=== PATIENT | female | born 1990 | race African-American/Black ===

== ENCOUNTER 2020-11-27 16:39 | Emergency (ER) | payer MEDICAID ==
[~2020-11-27] VITALS: Ht 167.6 cm; Wt 102.3 kg
[2020-11-27 17:05] VITALS: BP 103/67
--- NOTE | 2020-11-27 18:15 | NUR ---
Ran Urine hcg preg at 1755, came back negitive, notified RN and Provider
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
[2020-11-27] MEDS ORDERED: ACETAMINOPHEN 500 MG TABLET PO ONE (19:00)
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
== END 2020-11-27 19:06 | disposition home or self-care (01) ==
LOC: ER 16:39
DX: Z04.1 Encounter for examination and observation following transport accident (principal); F15.10 Other stimulant abuse, uncomplicated; R51.9 Headache, unspecified; R42 Dizziness and giddiness; R53.83 Other fatigue; F20.9 Schizophrenia, unspecified; Z87.820 Personal history of traumatic brain injury; F17.200 Nicotine dependence, unspecified, uncomplicated; V43.62XA Car passenger injured in collision with other type car in traffic accident, initial encounter; Y93.89 Activity, other specified; Y92.89 Other specified places as the place of occurrence of the external cause; Y99.8 Other external cause status
CPT/HCPCS: 70450; 81025; 99284

== ENCOUNTER 2020-12-15 18:34 | Emergency (ER) | payer MEDICAID, OTHER ==
[~2020-12-15] VITALS: Ht 170.2 cm; Wt 200.0 kg
[2020-12-15 19:05] VITALS: BP 120/73
--- NOTE | 2020-12-15 19:53 | PHYS DOC ---
Past Medical History Past Medical History: Schizophrenia, Other Additional Past Medical Histor: TBI Past Surgical History: Other Additional Past Surgical Histo: RECTAL PROLAPSE Smoking Status: Current Every Day Smoker Alcohol Use: Rarely Drug Use: Methamphetamine General Adult EDM: Chief Complaint: COUGH HPI: HPI: Patient is a 30 year old female who presents with cough, runny nose, chest pain with cough, fatigue and headache for 1 month. Patient states she is taking no prescriptions for any of her symptoms. Patient denies fever, syncope, shortness of breath, abdominal pain, nausea, vomiting, diarrhea, constipation, focal weakness, numbness or tingling, vision changes. Patient is a smoker, has asthma, TBI and schizophrenia. Patient states she used to have an inhaler but does not have an inhaler at home. Denies any pain at this time. Review of Systems: Review of Systems: Constitutional: Denies fever or chills. [] Eyes: Denies change in visual acuity. [] HENT: + nasal congestion or +sore throat. [] Respiratory: + cough or denies shortness of breath. [] Cardiovascular: +chest pain with cough or denies edema. [] GI: Denies abdominal pain, nausea, vomiting, bloody stools or diarrhea. [] : Denies dysuria. [] Musculoskeletal: Denies back pain or joint pain. [] Integument: Denies rash. [] Neurologic: + headache, denies focal weakness or sensory changes. [] Endocrine: Denies polyuria or polydipsia. [] Lymphatic: Denies swollen glands. [] Psychiatric: Denies depression or anxiety. [] Heart Score: C/O Chest Pain: No (with cough) Risk Factors: Risk Factors: DM, Current or recent (<one month) smoker, HTN, HLP, family history of CAD, obesity. Risk Scores: Score 0 - 3: 2.5% MACE over next 6 weeks - Discharge Home Score 4 - 6: 20.3% MACE over next 6 weeks - Admit for Clinical Observation Score 7 - 10: 72.7% MACE over next 6 weeks - Early Invasive Strategies Allergies: Allergies: Allergies Coded Allergies Type Severity Reaction Last Updated Verified No Known Drug Allergies 11/27/20 No Physical Exam: PE: Constitutional: Well developed, well nourished, no acute distress, non-toxic appearance. [] HENT: Normocephalic, atraumatic, bilateral external ears normal, oropharynx moist, no oral exudates, nose normal. [] Eyes: PERRLA, EOMI, conjunctiva normal, no discharge. [] Neck: Normal range of motion, no tenderness, supple, no stridor. [] Cardiovascular:Heart rate regular rhythm, no murmur [] Lungs & Thorax: Bilateral breath sounds clear to auscultation [] Abdomen: Bowel sounds normal, soft, no tenderness, no masses, no pulsatile masses. [] Skin: Warm, dry, no erythema, no rash. [] Back: No tenderness, no CVA tenderness. [] Extremities: No tenderness, no cyanosis, no clubbing, ROM intact, no edema. [] Neurologic: Alert and oriented X 3, normal motor function, normal sensory function, no focal deficits noted. [] Psychologic: Affect normal, judgement normal, mood normal. Normal physical exam [] Current Patient Data: Vital Signs: Vital Signs Date Time Temp Pulse Resp B/P (MAP) Pulse Ox O2 Delivery O2 Flow Rate FiO2 12/15/20 19:05 98.4 88 16 120/73 (89) 96 Room Air 98.4 EKG: EKG: [] Radiology/Procedures: Radiology/Procedures: [] Impression: [facility] [id number] [place] [address] IMAGING REPORT Signed PATIENT: GALE CAMARENA ACCOUNT: [id number] : 1990 LOCATION: ER AGE: 30 SEX: F EXAM STATUS: REG ER ORD. PHYSICIAN: NAVYA SORIANO APRN REASON: cough PROCEDURE: PORTABLE CHEST 1V EXAM: XR CHEST 1V 12/15/2020 8:06 PM CLINICAL INDICATION: Cough COMPARISON: None TECHNIQUE: AP upright view of the chest FINDINGS: The heart and mediastinum are normal. Lungs are well-expanded and clear. No consolidation, pleural effusion, or pneumothorax. Pulmonary vascularity is normal. The thoracic skeleton is intact. IMPRESSION: Normal chest radiograph. Electronically signed by: Mihaela Bernal MD (12/15/2020 8:11 PM) [id number] DICTATED and SIGNED BY: MIHAELA BERNAL MD DATE: 12/15/[id number] 0 Course & Med Decision Making: Course & Med Decision Making Pertinent Labs and Imaging studies reviewed. (See chart for details) COVID-19 CRITERIA: The patient was evaluated during the global COVID-19 pandemic, and that diagnosis was suspected/considered upon their initial presentation. Their evaluation, treatment and testing was consistent with current guidelines for patients who present with complaints or symptoms that may be related to COVID-19. See HPI. Alert and oriented x4. Ambulatory with a steady gait. Speaks in full clear sentences. Lungs are clear to auscultation all lobes. Vital signs are within normal limits. Bilateral tympanic's intact and white. Throat is pink without exudates or swelling. Chest x-ray shows no acute findings. [] Dragon Disclaimer: Dragon Disclaimer: This electronic medical record was generated, in whole or in part, using a voice recognition dictation system. Departure Departure Impression: Primary Impression: Cough Additional Impression: Person under investigation for COVID-19 Disposition: HOME / SELF CARE / HOMELESS Condition: STABLE Referrals: NO PCP (PCP) Patient Instructions: Cough, Adult Additional Instructions: Follow-up with your primary care physician if needed. Drink plenty of fluids. Take medication as prescribed and with food. Scripts Cetirizine Hcl (ZYRTEC) 10 Mg Tablet 1 TAB PO DAILY, #30 TAB Prov: NAVYA SORIANO TRANSPORTATION MECHANIC 12/15/20 Fluticasone Propionate (Flonase Allergy Relief) 9.9 Ml [place].susp 2 SPRAYS NS DAILY, #1 ML Prov: NAVYA SORIANO TRANSPORTATION MECHANIC 12/15/20 Albuterol Sulfate (PROAIR HFA INHALER) 8.5 Gm Hfa.aer.ad 1 PUFF INH PRN Q6HRS PRN for SHORTNESS OF BREATH, #1 EACH 0 Refills Prov: NAVYA SORIANO TRANSPORTATION MECHANIC 12/15/20 Methylprednisolone (MEDROL) 4 Mg Tab.ds.pk 1 PKG PO UD, #1 PKG Prov: NAVYA SORIANO TRANSPORTATION MECHANIC 12/15/20 BAFUSPETEA Anahi TRANSPORTATION MECHANIC December 15, 2020 19:53
--- NOTE | 2020-12-15 20:14 | RAD ---
EXAM: XR CHEST 1V 12/15/2020 8:06 PM CLINICAL INDICATION: Cough COMPARISON: None TECHNIQUE: AP upright view of the chest FINDINGS: The heart and mediastinum are normal. Lungs are well-expanded and clear. No consolidatio n, pleural effusion, or pneumothorax. Pulmonary vascularity is normal. The thoracic skeleton is int act. IMPRESSION: Normal chest radiograph. Electronically signed by: Mihaela Bernal MD (12/15/2020 8:11 PM) [id number]
[2020-12-15] MEDS ORDERED: ALBU2.5V8 INH (20:20)
[2020-12-15] MEDS ORDERED: FLUT9.9S NS (20:20)
[2020-12-15] MEDS ORDERED: CETI10TA74 PO (20:20)
[2020-12-15] MEDS ORDERED: METH4TAB2 PO (20:20)
--- NOTE | 2020-12-16 15:03 | NUR ---
IP: Attempted to contact pt concerning covid results. No answer, no voicemail.
--- NOTE | 2020-12-17 10:24 | NUR ---
IP Attempted a second time to contact pt concerning covid results. No answer, no voicemail.
== END 2020-12-15 20:32 | disposition home or self-care (01) ==
LOC: ER 18:34
DX: R05 Cough (principal); Z20.822 Contact with and (suspected) exposure to COVID-19; R09.89 Other specified symptoms and signs involving the circulatory and respiratory systems; R07.89 Other chest pain; F20.9 Schizophrenia, unspecified; F17.200 Nicotine dependence, unspecified, uncomplicated; Z87.820 Personal history of traumatic brain injury
CPT/HCPCS: 71045; 99284; U0003; U0005